=== PATIENT | female | born 1995 | race Caucasian/White ===

== ENCOUNTER 2018-07-28 22:27 | Emergency (ER) | payer OTHER, BC ==
[~2018-07-28] VITALS: Ht 165.1 cm; Wt 104.4 kg
[2018-07-28] MEDS ORDERED: DEXAMETHASONE 4 MG TABLET ONE (22:57)
[2018-07-28] MEDS ORDERED: KETOROLAC 30 MG/1 ML ONE (22:57)
[2018-07-28] MEDS ORDERED: DEXAMETHASONE 4 MG TABLET PO ONE (23:00)
[2018-07-28] MEDS ORDERED: KETOROLAC 30 MG/1 ML IM ONE (23:00)
[2018-07-29 00:20] VITALS: BP 136/74
== END 2018-07-29 00:22 | disposition home or self-care (01) ==
LOC: ED 07-29 00:14
DX: J02.8 Acute pharyngitis due to other specified organisms (principal); B97.89 Other viral agents as the cause of diseases classified elsewhere
CPT/HCPCS: 87081; 87880; 93005; 96372; 99285; J1885